=== PATIENT | female | born 1985 ===

== ENCOUNTER → 2016-07-17 | Outpatient (CLI) | payer OTHER ==
[~2016-07-17] MED LIST: FERR1TAB23 PO; PRENTAB26 PO
--- NOTE | 2016-07-17 14:17 | DIAGNOSTIC IMAGING REPORT ---
FIRST TRIMESTER OBSTETRICAL ULTRASOUND (transabdominal and endovaginal scanning) CLINICAL HISTORY: . Abnormal bleeding. COMPARISON STUDY: No previous studies for comparison. FINDINGS: The uterus measures 7.4 x 5.5 x 5.9 cm. The endometrial stripe measures 14 mm. No intrauterine gestational sac is visualized. There is a 22 mm fundal fibroid. The right ovary measures 30 x 16 x 30 mm. The left ovary measures 29 x 23 x 36 mm. There is a 2 cm left ovarian cyst, lesion, likely are presenting an involuting cyst. There is trace free fluid present. IMPRESSION: 1. No intrauterine gestation identified 2. Diagnostic considerations include normal early intrauterine gestation, ectopic , or spontaneous . Correlation with serial quantitative beta hCGs is recommended Electronically signed by: Keegan Nolan M.D. 07/17/2016 2:16 PM Dictated Date/Time: 07/17/2016 2:13 PM
== END | disposition home or self-care (01) ==
LOC: C.ULTR 13:06
PROVIDERS: ATTEND Family Medicine
DX: N93.8 Other specified abnormal uterine and vaginal bleeding (principal)

== ENCOUNTER → 2016-07-19 | Outpatient (CLI) | payer OTHER | END | disposition home or self-care (01) | LOC: C.LAB 14:18 | PROVIDERS: ATTEND Family Medicine | DX: N93.8 Other specified abnormal uterine and vaginal bleeding (principal) ==

== ENCOUNTER → 2016-07-21 | Outpatient (CLI) | payer OTHER ==
--- NOTE | 2016-07-21 12:06 | DIAGNOSTIC IMAGING REPORT ---
Limited ultrasound <14 WKS SINGLE CLINICAL HISTORY: ABNORMAL BLEEDING UTERINE/VAGINAL TECHNIQUE: Ultrasound COMPARISON STUDY: None FINDINGS: Uterus is midline. 2.5 cm fundal fibroid. An intrauterine gestational sac is confirmed. A yolk sac is identified. No evidence for a pole possibly due to the very early gestational age. The ovaries appear unremarkable. 2.4 cm corpus luteum cyst left ovary. IMPRESSION: 1. Intrauterine gestational sac with a yolk sac present 2. No evidence for a pole, possibly due to the early gestational age. 3. Follow-up ultrasound is recommended in 2 weeks to confirm viability. 4. 2.4 cm corpus luteum cyst left ovary. 5. Small fundal fibroid measuring 2.5 cm. Electronically signed by: Thaddeus Smith M.D. 07/21/2016 12:04 PM Dictated Date/Time: 07/21/2016 11:59 AM
== END | disposition home or self-care (01) ==
LOC: C.ULTRBC 07:56
PROVIDERS: ATTEND Family Medicine
DX: N93.8 Other specified abnormal uterine and vaginal bleeding (principal); N83.12 Corpus luteum cyst of left ovary; D25.9 Leiomyoma of uterus, unspecified

== ENCOUNTER → 2016-08-04 | Outpatient (CLI) | payer OTHER ==
[~2016-08-04] MED LIST changes: +MTR600X PO; +OXYC-57 PO
--- NOTE | 2016-08-04 11:51 | DIAGNOSTIC IMAGING REPORT ---
FIRST TRIMESTER OBSTETRICAL ULTRASOUND CLINICAL HISTORY: Abnormal uterine bleeding COMPARISON STUDY: 07/21/2016 FINDINGS: A single alive intrauterine gestation was identified. The embryonic heart rate was 146 bpm. The crown-rump length measured 9.9 mm corresponding to an estimated postmenstrual age of 7 weeks and 1 day. There is a small left ovarian corpus luteum. IMPRESSION: Single alive intrauterine gestation. The estimated postmenstrual age is 7 weeks and 1 day. Electronically signed by: Keegan Nolan M.D. 08/04/2016 11:49 AM Dictated Date/Time: 08/04/2016 11:47 AM
== END | disposition home or self-care (01) ==
LOC: C.ULTRBC 08:59
PROVIDERS: ATTEND Family Medicine
DX: O20.9 Hemorrhage in early pregnancy, unspecified (principal); Z3A.01 Less than 8 weeks gestation of pregnancy

== ENCOUNTER → 2016-08-14 | Outpatient (CLI) | payer OTHER ==
[2016-08-14 14:40] LABS: BASO % 0.2 %; BASO ABS # 0.01 K/uL (0-0.2); COMPLETE YES; EOS % 2.6 %; HEMATOCRIT 31.2 % (37-47); IG% 0.2 %; LYMPH % 31.6 %; LYMPH ABS # 1.84 K/uL (1.2-3.4); MEAN CELL VOLUME 79.2 fL (80-100); MEAN CORPUSCULAR HEMOGLOBIN 25.9 pg (25-34); MEAN CORPUSCULAR HGB CONC 32.7 g/dl (32-36); MEAN PLATELET VOLUME 11.1 fL (7.4-10.4); MONO % 7.9 %; NEUT % 57.5 %; PLATELET COUNT 278 K/uL (130-400); RED BLOOD COUNT 3.94 M/uL (4.2-5.4); WHITE BLOOD COUNT 5.82 K/uL (4.8-10.8)
[2016-08-14 14:52] LABS: URINE APPEARANCE CLEAR (CLEAR); URINE BILIRUBIN NEG (NEG); URINE COLOR YELLOW; URINE NITRITE NEG (NEG); URINE SPECIFIC GRAVITY 1.013 (1.000-1.030); UROBILINOGEN NEG (NEG)
[2016-08-14 15:07] LABS: MANUAL MICROSCOPIC REQUIRED? NO; REVIEW REQ? NO
[2016-08-17 03:05] LABS: CHLAMYDIA TRACH RNA*** NOT DETECTED (NOT DETECTED); GC (NEIS GONORRHOEAE)RNA** NOT DETECTED (NOT DETECTED)
== END | disposition home or self-care (01) ==
LOC: C.LAB1850 12:49
PROVIDERS: ATTEND Obstetrics & Gynecology
DX: O34.219 Maternal care for unspecified type scar from previous cesarean delivery (principal)

== ENCOUNTER → 2016-10-13 | Outpatient (CLI) | payer OTHER ==
[2016-10-13 13:27] LABS: GTGD 50 Grams
== END | disposition home or self-care (01) ==
LOC: C.LAB1850 09:38
PROVIDERS: ATTEND Obstetrics & Gynecology
DX: Z34.81 Encounter for supervision of other normal pregnancy, first trimester (principal)

== ENCOUNTER → 2016-11-08 | Outpatient (CLI) | payer OTHER | END | disposition home or self-care (01) | LOC: C.LAB1850 10:15 | PROVIDERS: ATTEND Obstetrics & Gynecology | DX: O28.9 Unspecified abnormal findings on antenatal screening of mother (principal); Z3A.00 Weeks of gestation of pregnancy not specified ==

== ENCOUNTER → 2017-01-02 | Outpatient (CLI) | payer OTHER ==
[2017-01-02 11:24] LABS: URINE APPEARANCE CLEAR (CLEAR); URINE BILIRUBIN NEG (NEG); URINE COLOR YELLOW; URINE NITRITE NEG (NEG); URINE PH 6.5 (4.5-7.5); URINE SPECIFIC GRAVITY 1.018 (1.000-1.030); UROBILINOGEN NEG (NEG)
[2017-01-02 11:25] LABS: MANUAL MICROSCOPIC REQUIRED? NO; REVIEW REQ? NO
== END | disposition home or self-care (01) ==
LOC: C.LABSPEC 11:05
PROVIDERS: ATTEND Obstetrics & Gynecology
DX: O28.9 Unspecified abnormal findings on antenatal screening of mother (principal); Z3A.00 Weeks of gestation of pregnancy not specified

== ENCOUNTER → 2017-01-08 | Outpatient (CLI) | payer OTHER ==
[2017-01-08 11:18] LABS: HEMATOCRIT 31.7 % (37-47)
== END | disposition home or self-care (01) ==
LOC: C.LAB1850 08:52
PROVIDERS: ATTEND Obstetrics & Gynecology
DX: O28.9 Unspecified abnormal findings on antenatal screening of mother (principal); Z3A.00 Weeks of gestation of pregnancy not specified

== ENCOUNTER → 2017-03-01 | Outpatient (CLI) | payer OTHER | END | disposition home or self-care (01) | LOC: C.LABSPEC 11:30 | PROVIDERS: ATTEND Obstetrics & Gynecology | DX: Z34.83 Encounter for supervision of other normal pregnancy, third trimester (principal); Z3A.00 Weeks of gestation of pregnancy not specified ==

== ENCOUNTER 2017-03-19 07:05 | Inpatient (IN) | payer OTHER ==
--- NOTE | 2017-03-16 13:07 | PAT Medication Instructions ---
Service Date Mar 16, 2017. Current Home Medication List Multivit/Min/Iron/Fol Ac/Pren ( Vitamin), 1 TAB PO QPM Medication Instructions For Your Scheduled Surgery - Take the following medications as scheduled the night before surgery: Multivit/Min/Iron/Fol Ac/Pren ( Vitamin), 1 TAB PO QPM If you have any questions please call us at [phone] or [phone] or [phone]
[2017-03-16 13:45] LABS: BASO % 0.2 %; BASO ABS # 0.02 K/uL (0-0.2); COMPLETE YES; EOS % 1.8 %; HEMATOCRIT 34.7 % (37-47); IG% 1.1 %; LYMPH % 23.5 %; LYMPH ABS # 2.09 K/uL (1.2-3.4); MEAN CELL VOLUME 82.6 fL (80-100); MEAN CORPUSCULAR HEMOGLOBIN 28.3 pg (25-34); MEAN CORPUSCULAR HGB CONC 34.3 g/dl (32-36); MEAN PLATELET VOLUME 10.6 fL (7.4-10.4); MONO % 5.6 %; NEUT % 67.8 %; PLATELET COUNT 224 K/uL (130-400)
[2017-03-16 15:03] LABS: URINE APPEARANCE CLEAR (CLEAR); URINE BILIRUBIN NEG (NEG); URINE COLOR YELLOW; URINE EPITHELIAL CELL AUTO >30 /lpf (0-5); URINE NITRITE NEG (NEG); URINE PH 6.5 (4.5-7.5); URINE SPECIFIC GRAVITY 1.019 (1.000-1.030); UROBILINOGEN NEG (NEG)
[2017-03-16 15:04] LABS: MANUAL MICROSCOPIC REQUIRED? NO; REVIEW REQ? NO
[2017-03-19] VITALS (13 sets, daily range): BP systolic 102–116; BP diastolic 60–76; PULSE 59–66; TEMP 36.8; O2SAT 97–99; Ht 165.1 cm; Wt 82.7 kg
[~2017-03-19] VITALS: Ht 165.1 cm; Wt 82.7 kg
[~2017-03-19 07:05] MED LIST changes: +CEFAZOLIN IV 2,000 MG in SYRINGE 0 ML IV SCH; +CITRIC ACID/SODIUM CITRATE 15 ML UDC PO SCH; -FERR1TAB23 PO; +LACTATED RINGER'S 1000ML 1,000 ML IV SCH; -MTR600X PO; -OXYC-57 PO
[2017-03-19] MEDS ORDERED: FERR1TAB23 PO (08:00)
--- NOTE | 2017-03-19 09:20 | HISTORY & PHYSICAL EXAMINATION ---
DATE OF ADMISSION: 03/19/2017 PREOPERATIVE DIAGNOSIS: Three prior deliveries, presenting for repeat. HISTORY OF PRESENT ILLNESS: Theresa is a 31-year-old G4, P3, who underwent 3 prior deliveries at full-term in [facility]. She has been under our care for her current and is presenting today for a planned repeat section at term. Her has been uncomplicated. MEDICATIONS: vitamins and iron. ALLERGIES: No known drugs. PAST MEDICAL HISTORY: She denies medical problems. PAST SURGICAL HISTORY: Three prior sections and possible appendectomy which is not certain. SOCIAL HISTORY: Negative x3. Lives with spouse and 3 children. FAMILY HISTORY: Noncontributory. PHYSICAL EXAMINATION: VITAL SIGNS: On admission, heart tones are 150, moderate variability, positive accels, no decels. Toca was quiet. Maternal vital signs are normal. Maternal weight is 182 pounds. GENERAL: Alert, in no acute distress. HEART: Regular rate and rhythm. LUNGS: Clear to auscultation bilaterally. ABDOMEN: Soft, gravid and nontender. CERVIX AND VAGINA: Deferred but she was 1 cm when she was examined last week by myself. EXTREMITIES: Without abnormalities. ASSESSMENT AND PLAN: This is a 4, para 3, with 3 prior sections, who presents at 39 weeks and 2 days for planned repeat section.
[2017-03-19] MEDS ORDERED: BUPIVACAINE 0.5 % 5 MG/1 ML PF 10ML VIAL ONE (09:27)
[2017-03-19] MEDS ORDERED: MORPHINE SULFATE PF 2MG/2ML SYR ONE (09:32)
[2017-03-19] MEDS ORDERED: OXYTOCIN INJ 10 UNITS/ML VIAL ONE ×3 (09:32→10:46)
[2017-03-19] MEDS ORDERED: LACTATED RINGER'S 1000ML 500 ML IV PRN (09:44)
[2017-03-19] MEDS ORDERED: SODIUM CHLORIDE 0.9% 1000ML 1,000 ML IV PRN (09:44)
[2017-03-19] MEDS ORDERED: NALOXONE HCL INJ 0.08 MG in SYRINGE 1.8 ML IV PRN (09:44)
[2017-03-19] MEDS ORDERED: NALOXONE HCL INJ 1 MG in SODIUM CHLORIDE 0.9% 1000ML 1,000 ML IV PRN (09:44)
[2017-03-19] MEDS ORDERED: ONDANSETRON INJ 2 MG/ML 2 ML VIAL IV PRN (09:45)
[2017-03-19] MEDS ORDERED: KETOROLAC TROMETHAMINE 30 MG/ML VIAL IV. PRN (09:45)
[2017-03-19] MEDS ORDERED: MoRPHine SULFATE 2 MG/ML CARP IV PRN (09:45)
[2017-03-19] MEDS ORDERED: NALBUPHINE HCL INJ 10 MG/ML AMP IV PRN (09:45)
[2017-03-19] MEDS ORDERED: NALOXONE HCL 0.4 MG/1 ML VIAL/CARP IV PRN (09:45)
[2017-03-19] MEDS ORDERED: EpHEDrine SULFATE INJ 50 MG/ML AMP IV PRN (09:45)
[2017-03-19] MEDS ORDERED: MoRPHine SULFATE PF 1 MG/ML 10 ML AMP/VIAL EPI PRN (09:45)
[2017-03-19] MEDS ORDERED: NO NARCOTICS OR SEDATIVES SCH (09:45)
[2017-03-19] MEDS ORDERED: DiphenhydrAMINE HCL 50 MG/ML VIAL IV PRN (09:45)
[2017-03-19] MEDS ORDERED: EpHEDrine SULFATE INJ 50 MG/ML AMP ONE (10:15)
[2017-03-19] MEDS ORDERED: EpHEDrine SULFATE 50MG/5ML SYR ONE ×2 (10:15→10:16)
[2017-03-19] MEDS ORDERED: MIDAZOLAM HCL 1 MG/ML 2ML VIAL ONE (10:29)
--- NOTE | 2017-03-19 10:40 | [facility] Post Operative Brief Note ---
Immediate Operative Summary Operative Date Mar 19, 2017. Pre-Operative Diagnosis Term . Caesarean Section x 2. Desires Repeat Caesarean Section. Post-Operative Diagnosis Same as Pre-op Procedure(s) Performed Live Female @ [address] Rodriguez Panelboard Assembler Surgeon(s) Dr. Patel Estimated Blood Loss 500 mL Findings DELIVERED A VIABLE FEMALE INFANT, APGARS 9, 10, WEIGHT 7#5 OZS. NORMAL UTERUS WITH THE EXCEPTION OF SIGNIFICANT THINNING AT LOWER UTERINE SEGMENT CONSISTENT WITH UTERINE WINDOW, NORMAL FALLOPIAN TUBES AND OVARIES BILATERALLY. Fluids (cc crystalloids) 1000 mL Specimens Placenta (Hold) Cord Blood Drains HURD TO STRAIGHT DRAINAGE, CLEAR AT END OF CASE Anesthesia SPINAL Complication(s) None Disposition Recovery Room / PACU
[2017-03-19] MEDS ORDERED: LANOLIN OINT EXT PRN ×2 (10:45)
[2017-03-19] MEDS ORDERED: MAGNESIUM HYDROXIDE SUSP 30 ML UDC PO PRN (10:45)
[2017-03-19] MEDS ORDERED: SENNA 8.6 MG TAB PO PRN (10:45)
[2017-03-19] MEDS ORDERED: SUPERCREAM 0.870 % 15GM JAR EXT PRN (10:45)
--- NOTE | 2017-03-19 11:07 | Anesthesiology Progress Note ---
Anesthesia Post Op Note Date & Time Mar 19, 2017 at 11:07 Notes Mental Status: alert / awake / arousable, participated in evaluation Pt Amnestic to Procedure: Yes Nausea / Vomiting: adequately controlled Pain: adequately controlled Airway Patency, RR, SpO2: stable & adequate BP & HR: stable & adequate Hydration State: stable & adequate Anesthetic Complications: no major complications apparent
[2017-03-19] MEDS ORDERED: OXYTOCIN INJ 30 UNITS in LACTATED RINGER'S 1000ML 1,000 ML IV SCH (11:15)
--- NOTE | 2017-03-19 13:06 | OPERATIVE REPORT ---
DATE OF OPERATION: 03/19/2017 PREOPERATIVE DIAGNOSES: 1. Whitney intrauterine at term. 2. Prior section x3. 3. Desires repeat section. POSTOPERATIVE DIAGNOSES: Same as preop. PROCEDURE: Repeat low transverse section for a live female infant at 10:20 a.m. SURGEON: Dr. Rodriguez. SHOEBLACK: Jorge. ESTIMATED BLOOD LOSS: 500. FINDINGS: Significant thinning at lower uterine segment. Normal fallopian tubes and ovaries bilaterally. Significant scar tissue in the subcutaneous through fascial layers. Viable infant with 7 pound 5 ounces weight and Apgars 9 and 10. FLUID: One liter of crystalloid. SPECIMENS: Placenta for hold and cord blood. DRAINS: Lassiter to straight drainage with clear urine at the end of the case. ANESTHESIA: Spinal. COMPLICATIONS: None. DISPOSITION: Stable to the recovery room. DESCRIPTION: Theresa Longo is a 31-year-old G4, P3-0-0-3 with 3 prior sections done in [facility]. She presented for care with her group and as planned, is here for a repeat section at term given her 3 prior cesareans. The patient was brought to the operating room, placed on the table in the supine position with a leftward tilt and prepped and draped in standard sterile fashion and a hard time-out was taken prior to proceeding. An incision was created through her prior Pfannenstiel scar. This was carried down sharply through the subcutaneous tissue, which was essentially matted with scar tissue and could not be bluntly dissected at all. Sharp dissection continued down to the level of the fascia, which had to be incised sharply and then extended using Ponce scissors again because of scar tissue. The fascia was gently elevated and both sharply and bluntly dissected off the underlying rectus. Again, significant scar tissue was encountered. Caution was utilized throughout the dissection and cold sharp dissection was used for all portions of this dissection. Once the fascia had been completely freed, the midline of the rectus was addressed. This was scarred completely closed and had to be reopened in a sharp cold manner. Once this was accomplished, the peritoneum was entered bluntly and extended using the carton machine operator's hand. The lower uterine segment was seen to be markedly thin. It was actually possible to visualize floating vertex prior to even making a bladder flap. The bladder flap was created in a sharp manner, during which entry to the uterus was accomplished essentially spontaneously. Copious clear fluid resulted. The hysterotomy was extended using blunt pressure and the head was then elevated to the hysterotomy where the infant was then delivered with mild fundal pressure. The infant was vigorous immediately upon delivery. The cord was doubly clamped and cut and then the infant was taken to the warmer. The placenta was manually extracted and the uterus was then exteriorized. Once the uterus was cleared of all clot and debris using a sponge, the angles of the hysterotomy were identified using Allis clamps and the hysterotomy was repaired in a 2-layer fashion with 0 Vicryl suture, the first layer being locked and the second layer being imbricating. There was noted to be, on examination of the uterus, normal tubes and ovaries bilaterally and a golf ball size fundal fibroid, which was slightly to the posterior aspect of the fundus, was also noted. The posterior gutter was cleared of all clot and debris using irrigation and suction. The uterus was then gently re-internalized. The lateral gutters were cleared of all clot and debris using a damp lap sponge. The hysterotomy was again examined and noted to be well approximated and hemostatic. The muscles were allowed to reapproximate naturally and the fascia was then closed using a running nonlocked #1 Vicryl suture. The subcutaneous tissue was copiously irrigated and then gently closed using 3-0 chromic, after which the skin was reapproximated using 4-0 Monocryl and a Dermabond dressing was applied. After surgery, the patient's Lassiter was draining clear yellow urine and she was transferred back to the recovery room in stable condition. I attest to the content of the Intraoperative Record and any orders documented therein. Any exception s are noted below.
[2017-03-19] MEDS: SIMETHICONE 80 MG CHEW PO SCH ×3 (14:11→19:45)
[2017-03-19] MEDS: DOCUSATE SODIUM 100 MG CAP PO SCH (19:45)
[2017-03-20] VITALS: O2SAT 99
[2017-03-20 01:00] VITALS: O2SAT 97
[2017-03-20 02:00] VITALS: O2SAT 99
[2017-03-20] MEDS ORDERED: ONDANSETRON INJ 2 MG/ML 2 ML VIAL IV PRN (02:00)
[2017-03-20] MEDS ORDERED: OXYCODONE/ACETAMINOPHEN 5-325 TAB PO PRN (02:00)
[2017-03-20] MEDS ORDERED: DC INTRASPINAL MORPHINE SCH (02:00)
[2017-03-20] MEDS ORDERED: KETOROLAC TROMETHAMINE 30 MG/ML VIAL IV. PRN (02:00)
[2017-03-20 03:30] VITALS: BP 110/74; PULSE 66; TEMP 36.7; O2SAT 97
[2017-03-20] MEDS: IBUPROFEN 600 MG TAB PO PRN ×4 (06:19→20:21)
[2017-03-20] MEDS: OXYCODONE/ACETAMINOPHEN 5-325 TAB PO PRN ×4 (06:19→20:21)
--- NOTE | 2017-03-20 07:26 | Progress Note ---
Subjective Mar 20, 2017. Subjective conversation w/ patient, physical exam, chart review, lab review Ambulation: limited ambulation (pt states that she has not been up to use the bathroom yet this morning.) Voiding: no voiding problems (green taken out this AM, pt yet to use bathroom.) Passing Gas: Yes Diet Tolerance: Regular Diet Lochia: Moderate Feeding Type: Breast Feeding Pain: controlled Review of Systems Respiratory: No shortness of breath Cardiac: No chest pain Abdomen: No nausea, No vomiting Objective Vital Signs Date Time Temp Pulse Resp B/P (MAP) Pulse Ox O2 Delivery O2 Flow Rate FiO2 03/20/17 03:30 36.7 66 16 110/74 (86) 97 Room Air 03/20/17 02:00 16 99 03/20/17 01:00 16 97 03/20/17 00:00 16 99 03/19/17 23:30 36.8 59 16 102/60 (74) 99 Room Air 03/19/17 23:30 99 Room Air 03/19/17 23:00 16 99 03/19/17 22:05 18 98 03/19/17 21:00 16 97 03/19/17 20:00 16 99 03/19/17 19:35 36.8 66 18 113/76 (88) 99 Room Air 03/19/17 19:00 16 98 03/19/17 18:00 18 99 03/19/17 17:00 18 99 03/19/17 16:45 36.8 66 18 116/75 (89) 99 Room Air 03/19/17 16:45 99 Room Air 03/19/17 16:00 16 99 03/19/17 15:00 18 99 03/19/17 14:00 18 99 Physical Exam General Appearance: WELL-APPEARING, WD/WN, NO APPARENT DISTRESS Respiratory/Chest: lungs clear, normal breath sounds, no respiratory distress Cardiovascular: regular rate, rhythm, no gallop Abdomen: normal bowel sounds, soft Fundus: Firm, Tender (appropriately tender), Relation to Umbilicus (at U) Incision Description: Clean, Dry & Intact Extremities: non-tender, normal inspection Laboratory Results Last 24 Hours Test 03/20/17 06:00 Assessment and Plan Post-Op Day#: 1 Continue Routine Care: 31 yof (now4) s/p repeat C/S post op day 1 O+/GBS-/RI Vital signs reviewed and wnl. Hgb 11.9 on admission, today pending. Pt doing well clinically, has not needed to urinate since green taken out this morning, so unable to assess dysuria. However she does complain of dizziness upon sitting up in bed, but denies shortness of breath or palpitations or chest pain. Continue routine post care, monitor lochia, control pain with motrin/ tylenol, encourage breast feeding and ambulation. CAROLINE DIAZ FMR PGY 1. Resident Tracking Resident Involvement: Resident Care Provided Care Provided: OB Delivery
[2017-03-20 08:01] LABS: BASO % 0.2 %; BASO ABS # 0.02 K/uL (0-0.2); COMPLETE YES; HEMATOCRIT 31.3 % (37-47); IG% 0.7 %; LYMPH % 16.8 %; LYMPH ABS # 1.69 K/uL (1.2-3.4); MEAN CELL VOLUME 82.8 fL (80-100); MEAN CORPUSCULAR HGB CONC 33.9 g/dl (32-36); MEAN PLATELET VOLUME 10.1 fL (7.4-10.4); NEUT % 75.3 %; PLATELET COUNT 189 K/uL (130-400); RED BLOOD COUNT 3.78 M/uL (4.2-5.4); WHITE BLOOD COUNT 10.05 K/uL (4.8-10.8)
[2017-03-20 08:40] VITALS: BP 118/76; PULSE 80; TEMP 36.7; O2SAT 97
[2017-03-20] MEDS: DOCUSATE SODIUM 100 MG CAP PO SCH ×2 (09:10→20:21)
[2017-03-20] MEDS: PRENATAL VITAMIN TAB PO SCH (09:10)
[2017-03-20] MEDS: SIMETHICONE 80 MG CHEW PO SCH ×4 (09:10→20:21)
[2017-03-20] MEDS: FERROUS SULFATE 325 MG TAB PO SCH (09:10)
[2017-03-20 15:30] VITALS: BP 115/77; PULSE 69; TEMP 36.8
[2017-03-20] MEDS ORDERED: BISACODYL 5 MG TABEC PO ONE (22:00)
[2017-03-21 01:00] VITALS: BP 108/71; PULSE 81; TEMP 36.5
[2017-03-21] MEDS: IBUPROFEN 600 MG TAB PO PRN ×4 (05:18→19:52)
[2017-03-21] MEDS: OXYCODONE/ACETAMINOPHEN 5-325 TAB PO PRN ×5 (05:19→20:36)
[2017-03-21 06:12] LABS: HEMATOCRIT 31.5 % (37-47)
[2017-03-21 07:30] VITALS: BP 118/82; PULSE 71; TEMP 37.2; O2SAT 99
--- NOTE | 2017-03-21 07:34 | Progress Note ---
Subjective Mar 21, 2017. Subjective conversation w/ patient (pt says her bloatedness is still present, but the shoulder pain has improved.), physical exam, chart review, lab review Ambulation: ambulating normally Voiding: no voiding problems (green taken out this AM, pt yet to use bathroom.) Passing Gas: Yes Diet Tolerance: Regular Diet Lochia: Moderate Feeding Type: Breast Feeding Pain: controlled Review of Systems Respiratory: No shortness of breath Abdomen: No nausea, No vomiting Female : No dysuria Objective Vital Signs Date Time Temp Pulse Resp B/P (MAP) Pulse Ox O2 Delivery O2 Flow Rate FiO2 03/21/17 01:00 Room Air 03/21/17 01:00 36.5 81 18 108/71 (83) Room Air 03/20/17 15:30 Room Air 03/20/17 15:30 36.8 69 20 115/77 (90) Room Air 03/20/17 08:40 36.7 80 118/76 (90) 97 Room Air 03/20/17 08:35 Room Air Physical Exam General Appearance: WELL-APPEARING, WD/WN, NO APPARENT DISTRESS Respiratory/Chest: lungs clear, normal breath sounds, no respiratory distress Cardiovascular: regular rate, rhythm, no gallop Abdomen: normal bowel sounds, soft Fundus: Firm, Tender (appropriately tender), Relation to Umbilicus (2 below U) Incision Description: Clean, Dry & Intact Extremities: non-tender, normal inspection (pt not wearing her SCD's ) Laboratory Results Last 24 Hours Test 03/20/17 07:42 03/21/17 05:32 White Blood Count 10.05 K/uL Red Blood Count 3.78 M/uL Hemoglobin 10.6 g/dL 10.7 g/dL Hematocrit 31.3 % 31.5 % Mean Corpuscular Volume 82.8 fL Mean Corpuscular Hemoglobin 28.0 pg Mean Corpuscular Hemoglobin Concent 33.9 g/dl Platelet Count 189 K/uL Mean Platelet Volume 10.1 fL Neutrophils (%) (Auto) 75.3 % Lymphocytes (%) (Auto) 16.8 % Monocytes (%) (Auto) 5.0 % Eosinophils (%) (Auto) 2.0 % Basophils (%) (Auto) 0.2 % Neutrophils # (Auto) 7.57 K/uL Lymphocytes # (Auto) 1.69 K/uL Monocytes # (Auto) 0.50 K/uL Eosinophils # (Auto) 0.20 K/uL Basophils # (Auto) 0.02 K/uL RDW Standard Deviation 38.1 fL RDW Coefficient of Variation 12.6 % Immature Granulocyte % (Auto) 0.7 % Immature Granulocyte # (Auto) 0.07 K/uL Assessment and Plan Post-Op Day#: 2 Continue Routine Care: 31 yof (now4) s/p repeat C/S post op day 2 O+/GBS-/RI Vital signs reviewed and wnl. Hgb 11.9 on admission, 10.6, 10.7 this AM. Pt doing well clinically, although has bloating which seems to be causing her some shoulder pain, improving. Continue routine post care, monitor lochia, control pain with motrin/ tylenol, encourage breast feeding and ambulation. Encourage wearing her SCD's, I reapplied them on her this morning.Pt desires to stay an additional night. CAROLINE PAETL FMR PGY 1 Resident Physician Supervision Note: I was present with Dr. Patel during the history and exam. I discussed the case with the resident and agree with the findings and plan as documented in the note. Any exceptions or clarifications are listed here: POD#2, doing well. Encourage ambulation, PO hydration. Anticipate discharge home tomorrow. Documented By: Sobia Cardona Resident Tracking Resident Involvement: Resident Care Provided Care Provided: OB Delivery
[2017-03-21 07:45] VITALS: BP 118/82; PULSE 71; TEMP 37.2; O2SAT 99
[2017-03-21] MEDS: PRENATAL VITAMIN TAB PO SCH (08:04)
[2017-03-21] MEDS: DOCUSATE SODIUM 100 MG CAP PO SCH ×2 (08:04→19:51)
[2017-03-21] MEDS: FERROUS SULFATE 325 MG TAB PO SCH (08:04)
[2017-03-21] MEDS: SIMETHICONE 80 MG CHEW PO SCH ×4 (08:04→19:51)
[2017-03-21 15:00] VITALS: BP 129/82; PULSE 78; TEMP 37; O2SAT 99
[2017-03-21 23:10] VITALS: BP 103/64; PULSE 79; TEMP 36.9; O2SAT 98
[2017-03-22] MEDS: IBUPROFEN 600 MG TAB PO PRN ×3 (04:45→13:20)
[2017-03-22] MEDS: OXYCODONE/ACETAMINOPHEN 5-325 TAB PO PRN ×3 (04:46→13:20)
--- NOTE | 2017-03-22 06:51 | Progress Note ---
Subjective Mar 22, 2017. Subjective conversation w/ patient, physical exam, chart review, lab review Ambulation: ambulating normally Voiding: no voiding problems Passing Gas: Yes Diet Tolerance: Regular Diet Lochia: Moderate Feeding Type: Breast Feeding Pain: controlled Review of Systems Respiratory: No shortness of breath Cardiac: No chest pain Female : No dysuria Objective Vital Signs Date Time Temp Pulse Resp B/P (MAP) Pulse Ox O2 Delivery O2 Flow Rate FiO2 03/21/17 23:10 36.9 79 16 103/64 (77) 98 Room Air 03/21/17 23:10 98 Room Air 03/21/17 15:00 37.0 78 18 129/82 (98) 99 Room Air 03/21/17 15:00 Room Air 03/21/17 07:45 37.2 71 12 118/82 (94) 99 Room Air 03/21/17 07:45 99 Room Air 03/21/17 07:30 Room Air 03/21/17 07:30 37.2 71 20 118/82 (94) 99 Room Air Physical Exam General Appearance: WELL-APPEARING, WD/WN, NO APPARENT DISTRESS Respiratory/Chest: lungs clear, normal breath sounds, no respiratory distress Cardiovascular: regular rate, rhythm, no gallop Abdomen: normal bowel sounds, soft Fundus: Firm, Tender (appropriately tender), Relation to Umbilicus (2 below U) Incision Description: Clean, Dry & Intact Extremities: non-tender, normal inspection Assessment and Plan Post-Op Day#: 3 Continue Routine Care: 31 yof (now4) s/p repeat C/S. O+/GBS-/RI Vital signs reviewed and wnl. Hgb 11.9 on admission, 10.6, 10.7. Stable. Pt doing well clinically, her shoulder pain and cramping is improving. Continue routine post care, monitor lochia, control pain with motrin/ tylenol, encourage breast feeding and ambulation. Pt counselled on discharge instructions, answered all questions. CAROLINE PATEL FMR PGY 1 Resident Physician Supervision Note: I was present with Dr. Patel during the history and exam. I discussed the case with the resident and agree with the findings and plan as documented in the note. Any exceptions or clarifications are listed here: When I went to see pt she was ambulating to BR. voiding, ambulating, eating, +flatus and good pain control. going home today. aware of pain med script.fundus was above u 1cm and firm but patient needed to void. incision c/d/i. reviewed discharge instructions. script readied and checked on pa pdmp and no issues. Documented By: Sana Laura Resident Tracking Resident Involvement: Resident Care Provided Care Provided: OB Delivery
--- NOTE | 2017-03-22 06:52 | Discharge Instructions ---
Discharge Instructions Date of Service Mar 22, 2017. Admission Reason for Admission: Repeat Discharge Discharge Diagnosis / Problem: Repeat Discharge Goals Goal(s): Routine recovery after Medications Continue Dispensed Medications: supercream, lansinoh Activity Recommendations Activity Limitations: per Instructions/Follow-up section . Instructions / Follow-Up Instructions / Follow-Up ACTIVITY RECOMMENDATIONS: * Gradual return to full activity over the next 2-3 weeks. * No lifting - nothing heavier than baby over the next 2-3 weeks. * Do not engage in vigorous exercise, sexual activity or sports until cleared by your physician. * Do not drive or operate any motorized equipment until cleared by your physician. * You may shower/bathe daily. MEDICATIONS: For discomfort or pain, you may use Acetaminophen (Tylenol), Ibuprofen (Advil), or Naproxen (Aleve) following the package directions. For constipation you may use Colace following the package directions. BREAST CARE: If you are not breast feeding: * Wear a supportive bra 24 hours a day for one to two weeks. * Avoid stimulating your breasts and nipples as much as possible during the first few weeks after delivery. * When taking a shower, have the warm water hit your back, not breasts. * When your breasts feel full, apply ice packs. Usually three to four times a day helps ease the discomfort. * Take a mild pain medication (Tylenol / Motrin) when you are uncomfortable. If breast feeding: * Use breast milk to lubricate nipples. Lansinoh cream may be used for sore nipples. You do not need to remove cream prior to breast feeding. If using a different brand of cream, check the label for directions regarding removal of cream prior to nursing. * Wear a supportive bra. * If having problems with breasts or breast feeding, call a telecommunications consultant or your health care provider. SPECIAL CARE INSTRUCTIONS: When you are discharged from the hospital, it is important for you to follow the instructions listed below: * During the first week at home, you should be able to care for yourself and your baby. In addition, the usual light household activities are encouraged. * Limit your activities to the way you feel. Do not try to clean the house or move furniture. Be sensible. * If you actively engage in sports and have done so up until the time of your delivery, you may resume these activities as soon as you feel able. This may take up to one month or even longer. Use good judgment. * Continue to take your vitamins for at least six weeks after the of your baby. * Your diet need not be limited unless you were on a special diet before your delivery. Breast-feeding mothers need around 2500 calories per day and at least 64-80 ounces of fluid per day (8 to 10 glasses). * You should eat foods from the four major food groups. Crash diets or fad diets are to be avoided. Eating lean meats, fresh fruits and vegetables, low-fat dairy products, high fiber foods and a regular exercise program, will help you get back to your pre- weight without putting your health at risk. * Constipation is sometimes a problem after delivery. Take a mild laxative as needed. If breast feeding, Milk of Magnesia is acceptable to use. You may use a suppository or Fleets enema. * A daily shower or tub bath is suggested. Wash incision daily with warm soapy water and pat dry. It doesn't need to be covered unless drainage is present. * A bloody vaginal discharge will usually continue until around four weeks . A small amount of bleeding may continue for as long as six weeks. Vaginal discharge changes from the bright red bleeding after delivery to pink then brownish and finally yellowish-pink before becoming white and disappearing. * Bleeding may increase with activity. Your first period may come in 4-8 weeks. If you are breast feeding, your period may be delayed even longer. * [place] (sex) can begin whenever both you and your partner feel comfortable and do not have any form of genital infection. It is recommended that you wait at least six weeks for internal and external healing to occur. If you have questions, please talk to your health care practitioner. A condom should be used to prevent infection and . * Foreplay, gentle intercourse and lubrication is very important the first several times to prevent pain. A water-based lubricant such as K-Y jelly or Astroglide may be used. * If you have RH negative blood and your baby is RH positive, you will receive RHOGAM by injection prior to discharge. The nurse will give you a card to keep with you that has the date and place that you received RHOGAM after delivery. * During your care, you had a Rubella screen done to check for the presence of rubella antibodies in your blood. If your test was negative, you will receive a Rubella vaccine prior to discharge. This vaccine may cause a fever, soreness at the injection site and flu-like symptoms. If these symptoms persist, notify your health care practitioner. is not advised for one month after a Rubella vaccine. * Verbalizes understanding of car seat law as reviewed with patient nursing. * Car Seat hand-out given and reviewed with patient by nursing. * Shaken baby information reviewed with patient by nursing. Call you doctor if: * Heavy bleeding (saturating several pads an hour) or passing clots the size of your fist. * A fever >101 degrees F (38.3 degrees C) on two occasions four hours apart and /or chills. * Unusual pain in the pelvic or vaginal areas. * Call the doctor for any increased redness, drainage or swelling around the incision and any pain unrelieved by prescribed pain medication. * "Baby Blues" lasting longer than two weeks. If you have any questions or concerns, call your health care practitioner at . FOLLOW UP VISIT: * Please call the office at to schedule a 6 week examination. It is important you keep this appointment. It is important for you to make arrangements for either yearly or twice yearly check-ups thereafter. Current Hospital Diet Patient's current hospital diet: Regular OB Diet Discharge Diet Recommended Diet: Regular OB Diet Procedures Procedures Performed: Live Female Infant @ 1020 Pending Studies Studies pending at discharge: no Medical Emergencies . Who to Call and When: Medical Emergencies: If at any time you feel your situation is an emergency, please call 911 immediately. . Non-Emergent Contact Non-Emergency issues call your: Primary Care Provider . . "Provider Documentation" section prepared by Heaven Patel. . VTE Core Measure Inpt VTE Proph given/why not?: SCD's
[2017-03-22 08:00] VITALS: BP 120/85; PULSE 78; TEMP 37; O2SAT 97
[2017-03-22] MEDS ORDERED: OXYC-57 PO (08:31)
[2017-03-22] MEDS ORDERED: MTR600X PO (08:32)
[2017-03-22] MEDS: SIMETHICONE 80 MG CHEW PO SCH ×2 (08:40→13:20)
[2017-03-22] MEDS: DOCUSATE SODIUM 100 MG CAP PO SCH (08:40)
[2017-03-22] MEDS: PRENATAL VITAMIN TAB PO SCH (08:40)
[2017-03-22] MEDS: FERROUS SULFATE 325 MG TAB PO SCH (08:40)
[2017-03-22 16:12] VITALS: BP_DIAS 85; PULSE 78; TEMP 37
[2017-03-22 16:15] VITALS: BP 112/78; PULSE 74; TEMP 37; O2SAT 99
== END 2017-03-22 17:50 | disposition home or self-care (01) | DRG 766 ==
LOC: C.LD 07:05 → EDSTATUS 09:00 → C.OBG 15:13
PROVIDERS: ADMIT Obstetrics & Gynecology; ATTEND Obstetrics & Gynecology
PROC: 10D00Z1 Extraction of Products of Conception, Low, Open Approach (ICD-10-PCS; principal; 2017-03-19 09:00)
DX: O34.211 Maternal care for low transverse scar from previous cesarean delivery (principal); Z37.0 Single live birth; O34.593 Maternal care for other abnormalities of gravid uterus, third trimester; N85.8 Other specified noninflammatory disorders of uterus; O34.13 Maternal care for benign tumor of corpus uteri, third trimester; D25.9 Leiomyoma of uterus, unspecified; O99.63 Diseases of the digestive system complicating the puerperium; R14.0 Abdominal distension (gaseous); M25.519 Pain in unspecified shoulder; Z3A.39 39 weeks gestation of pregnancy